=== PATIENT | female | born 1950 | race Caucasian/White ===

== ENCOUNTER 2017-03-26 23:37 | Emergency (ER) | payer OTHER ==
[2017-03-26] MEDS ORDERED: NS 1,000 ML IV ONE (23:41)
[2017-03-26 23:49] LABS: % IMMATURE GRANULYOCYTES 0.2 % (0.0-1.1); ABSOLUTE IMMATURE GRANULOCYTES 0.01 10^3/uL (0.00-0.10); ADD DIFF? NO; ADD MORPH? NO; ADD SCAN? NO; ATYPICAL LYMPHOCYTE FLAG 0 (0-99); FRAGMENT RBC FLAG 0 (0-99); HEMATOCRIT 44.5 % (38.0-47.0); HEMOGLOBIN 15.5 g/dL (12.6-16.3); LEFT SHIFT FLG 0 (0-99); LIPEMIA HEMOLYSIS FLAG 90 (0-99); MEAN CELL HEMOGLOBIN CONCENTR. 34.8 g/dL (32.4-36.7); MEAN CELL VOLUME 103.5 fL (81.5-99.8); MEAN PLATELET VOLUME 8.6 fL (8.7-11.7); PLATELET CLUMPS FLAG 10 (0-99); PLATELET COUNT 197 10^3/uL (150-400)
[2017-03-27 00:05] LABS: ANION GAP 16 mEq/L (8-16); CALCIUM 9.5 mg/dL (8.5-10.4); CARBON DIOXIDE 25 mEq/l (22-31); CHLORIDE 105 mEq/L (97-110); CREATININE 0.7 mg/dL (0.6-1.0); GLOMERULAR FILTRATION RATE > 60; GLUCOSE 98 mg/dL (70-100); POTASSIUM 4.5 mEq/L (3.5-5.2); SODIUM 146 mEq/L (134-144)
[2017-03-27 00:15] LABS: INR 0.9 (0.83-1.16)
[2017-03-27 00:16] LABS: APTT 24.4 SEC (23.0-38.0)
--- NOTE | 2017-03-27 00:17 | EDPHY ---
H & P HPI/ROS: HPI The patient presents as a stroke alert for altered mental status for the last 2 hours witnessed by her . She became progressively confused, speaking nonsensically and seemed agitated. He thought she could be having an anxiety attack which she has a history of. Upon arrival of paramedics, blood pressure was 150/110, glucose was 105. She was not responding to commands and was oriented to self only. She did not have any unilateral weakness. According to her , she has been sleeping a lot lately and complained this morning that she was not feeling well. She isolated herself within the house today. REVIEW OF SYSTEMS Constitutional: No fever, no chills. Eyes: No discharge. ENT: No sore throat. Cardiovascular: No chest pain, no palpitations. Respiratory: No cough, no shortness of breath. Gastrointestinal: No abdominal pain, no vomiting. Genitourinary: No hematuria. Musculoskeletal: No back pain. Skin: No rashes. Neurological: No headache. PMHx: Depression, dealing with the of a family member a few months ago, hypertension, history of ischemic stroke, details are unclear Soc Hx: Lives alone with PHYSICAL General Appearance: Alert, no distress Eyes: Pupils equal and round no pallor or injection ENT, Mouth: Mucous membranes moist Respiratory: There are no retractions, lungs are clear to auscultation Cardiovascular: Regular rate and rhythm Gastrointestinal: Abdomen is soft and non-tender, no masses, bowel sounds normal Neurological: Alert, oriented to self only, cranial nerves 2-12 intact, 5/5 strength in upper and lower extremities which is symmetric, she has inability to name any objects and cannot read words on her stroke sheet, she is not linear , she cannot recall objects. Skin: Warm and dry, no rashes Musculoskeletal: Neck is supple non tender Extremities: symmetrical, full range of motion Psychiatric: Patient is oriented x1, agitated Source: Patient, Family, EMS Constitutional: Initial Vital Signs Temperature (C) 36.7 C 03/26/17 23:45 Heart Rate 92 03/26/17 23:45 Respiratory Rate 16 03/26/17 23:45 Blood Pressure 152/114 H 03/26/17 23:45 O2 Sat (%) 92 03/26/17 23:45 O2 Delivery Mode Room Air O2 (L/minute) 2 Allergies/Adverse Reactions: No Known Allergies Allergy (Unverified 03/27/17 00:07) Home Medications: Medication Instructions Recorded Atorvastatin Calcium 03/27/17 Supplements 03/27/17 Medical Decision Making - Diagnostics Imaging Results: Imaging Impressions Head CT 03/26/17 23:41 Impression: 1. Negative. No acute intracranial hemorrhage or evidence of ischemia. 2. Atrophy and mild white matter disease. Findings discussed with Emergency Department physician, Chantell Fontaine MD at 03/26/2017 23:53. Chest X-Ray 03/26/17 23:42 Impression: Clear lungs. Negative portable chest.. Imaging: Discussed imaging studies w/ yardage caller Radiologist, I viewed and interpreted images myself Differential Diagnosis: This is a 67-year-old female with history of CVA, hypertension, alcohol use who presents brought in by ambulance from home for concern for stroke with stroke activation. Her says that she was last seen normal 2 hours ago. On exam, she is slightly hypertensive, she has aphasia and memory loss. In the emergency department, patient went directly for CT scan of head without contrast which showed no acute findings according to Dr. Becerril. When she returned to her room her exam remained unchanged. [facility] was contacted and I discussed the case with Dr. Arelis Espinoza. At this time, patient's alcohol breathalyzer returned at 360. This is a confounding factor definitely and could be responsible for all of her symptoms. Given this, tPA does not seem like an appropriate therapy given alcohol intoxication is more likely the cause of her symptoms. We will continue to monitor her and her exam changes I will discuss the case with Neurology again. The patient was observed in the emergency room for several hours with her at the bedside. She continued to become more and more clinically sober. She did not have any neurologic deficits. I feel her presentation is caused by severe alcohol intoxication. She was able to walk with a steady gait. I discussed her alcohol use tonight with her and her at the bedside. She denies any suicidal ideation and says tonight she just "lost it" and used alcohol as an escape. She is dealing with depression and grieving the loss of a family member. She says she would never hurt herself. She is able to contract for safety. She is followed by multiple providers for mental health as an outpatient. I have instructed her that she needs to follow up within the next few days with some for evaluation. - Data Points Laboratory Results: Laboratory Results 03/26/17 23:43 03/26/17 23:43 03/26/17 03/26/17 03/26/17 23:43 23:43 23:43 WBC 4.56 10^3/uL 10^3/uL (3.80-9.50) RBC 4.30 10^6/uL 10^6/uL (4.18-5.33) Hgb 15.5 g/dL g/dL (12.6-16.3) POC Hgb Hct 44.5 % % (38.0-47.0) POC Hct MCV 103.5 fL H fL (81.5-99.8) MCH 36.0 pg H pg (27.9-34.1) MCHC 34.8 g/dL g/dL (32.4-36.7) RDW 13.0 % % (11.5-15.2) Plt Count 197 10^3/uL 10^3/uL (150-400) MPV 8.6 fL L fL (8.7-11.7) Neut % (Auto) 16.3 % L % (39.3-74.2) Lymph % (Auto) 70.8 % H % (15.0-45.0) [place] % (Auto) 9.6 % % (4.5-13.0) Eos % (Auto) 1.3 % % (0.6-7.6) Baso % (Auto) 1.8 % H % (0.3-1.7) Nucleat RBC Rel Count 0.0 % % (0.0-0.2) Absolute Neuts (auto) 0.74 10^3/uL L 10^3/uL (1.70-6.50) Absolute Lymphs (auto) 3.23 10^3/uL H 10^3/uL (1.00-3.00) Absolute Monos (auto) 0.44 10^3/uL 10^3/uL (0.30-0.80) Absolute Eos (auto) 0.06 10^3/uL 10^3/uL (0.03-0.40) Absolute Basos (auto) 0.08 10^3/uL 10^3/uL (0.02-0.10) Absolute Nucleated RBC 0.00 10^3/uL 10^3/uL (0-0.01) Immature Gran % 0.2 % % (0.0-1.1) Immature Gran # 0.01 10^3/uL 10^3/uL (0.00-0.10) PT 12.0 SEC SEC (12.0-15.0) INR 0.90 (0.83-1.16) APTT 24.4 SEC SEC (23.0-38.0) POC Sodium Sodium 146 mEq/L H mEq/L (134-144) POC Potassium Potassium 4.5 mEq/L mEq/L (3.5-5.2) POC Chloride Chloride 105 mEq/L mEq/L (97-110) Carbon Dioxide 25 mEq/l mEq/l (22-31) Anion Gap 16 mEq/L mEq/L (8-16) POC BUN BUN 10 mg/dL mg/dL (7-23) Creatinine 0.7 mg/dL mg/dL (0.6-1.0) POC Creatinine Estimated GFR > 60 Glucose 98 mg/dL mg/dL (70-100) POC Glucose Calcium 9.5 mg/dL mg/dL (8.5-10.4) Troponin I < 0.012 ng/mL ng/mL (0.000-0.034) Specimen Hemolysis Ethyl Alcohol 433 mg/dL H* mg/dL (0-10) 03/26/17 23:35 WBC RBC Hgb POC Hgb 15.0 gm/dL gm/dL (12.6-16.3) Hct POC Hct 44 % % (38-47) MCV MCH MCHC RDW Plt Count MPV Neut % (Auto) Lymph % (Auto) [place] % (Auto) Eos % (Auto) Baso % (Auto) Nucleat RBC Rel Count Absolute Neuts (auto) Absolute Lymphs (auto) Absolute Monos (auto) Absolute Eos (auto) Absolute Basos (auto) Absolute Nucleated RBC Immature Gran % Immature Gran # PT INR APTT POC Sodium 145 mEq/L H mEq/L (134-144) Sodium POC Potassium 4.3 mEq/L mEq/L (3.3-5.0) Potassium POC Chloride 105 mEq/L mEq/L (97-110) Chloride Carbon Dioxide Anion Gap POC BUN 9 mg/dL mg/dL (7-23) BUN Creatinine POC Creatinine 1.2 mg/dL H mg/dL (0.6-1.0) Estimated GFR Glucose POC Glucose 105 mg/dL H mg/dL (70-100) Calcium Troponin I Specimen Hemolysis Ethyl Alcohol Medications Given: Discontinued Medications Sodium Chloride (Ns) 1,000 mls @ 500 mls/hr IV EDNOW ONE PRN Reason: Protocol Stop: 03/27/17 01:40 Last Admin: 03/27/17 00:35 Dose: 1,000 mls Point of Care Test Results: 03/26/17 23:35 POC Sodium 145 H POC Potassium 4.3 POC Chloride 105 POC BUN 9 POC Creatinine 1.2 H POC Glucose 105 H Departure - Departure Disposition: Home, Routine, Self-Care Clinical Impression: Alcohol intoxication delirium Condition: Good Instructions: Depression (ED), Alcohol Intoxication (ED) Additional Instructions: Please return to the emergency room if your feeling worse in any way. Please follow-up with your mental health providers in the next 1-2 days.
[2017-03-27 00:19] VITALS: RESP 16
[2017-03-27 00:23] LABS: TROPONIN I < 0.012 ng/mL (0.000-0.034)
[2017-03-27 03:53] VITALS: BP 118/74; PULSE 77; TEMP 98.2; O2SAT 94
[2017-03-27 12:56] LABS: ETHANOL SERUM 433 mg/dL (0-10)
== END 2017-03-27 03:54 | disposition home or self-care (01) ==
LOC: EDUNIT#
CPT/HCPCS: 82947-QW; G0480